=== PATIENT | male | born 1975 | race Caucasian/White ===

== ENCOUNTER 2024-11-09 10:40 | Outpatient (AMB) | payer OTHER, SELFPAY ==
--- NOTE | 2024-11-09 10:44 | A.OFFVIS_ITS ---
Vital Signs 3 11/09/24 10:52 Height 5 ft 8 in Weight 166 lb BMI 25.2 BP 166/106 H Blood Pressure Location Lt brachial Position Sitting Pulse 66 Intake Visit Reasons: epidermal cyst Intake Note: Patient is seen in office for evaluation of a two large cyst of the scalp. Pt c/o: has two cyst front one has been there many yrs, another behind for 2 yrs, painful when hitting it, increase in size, denies discharge, redness Coke Worker Required: No Accompanied by: Self / Same As Patient Allergies No Known Allergies Allergy (Verified 11/09/24 10:51) Medication List - Last Reconciled 11/09/24 by Jonah Marie MD No Known Home Meds HPI Comments Details: 48-year-old male patient presenting with several lumps on his scalp which has been present for several years but have gradually increased in size. He denies any pain, redness or discharge from the site. Denies any fever or chills. He is requesting excision of the 3 lesions. [facility] Social History Alcohol intake: never Patient Tobacco Use Status: Never used Tobacco Review of Systems Const All systems reviewed & are unremarkable except as noted in HPI and below Physical Exam Vital Signs: Last Vital Signs Pulse 66 11/09/24 10:52 BP 166/106 H 11/09/24 10:52 BMI result Body Mass Index 25.2 Const General: cooperative and no acute distress Nutritional Appearance: well nourished Orientation/consciousness: patient oriented x3 Limitations: no limitations HEENT Other: Pilar cyst x3 including a 4 cm lesion in the frontal scalp, 3 cm lesion in the parietal scalp to the right of midline, and a 1 cm lesion in the posterior parietal region, all nontender to palpation, the larger lesions with some fluctuance suggestive of underlying fluid. Head: Yes normocephalic and Yes atraumatic Head images: 2 1. 4 cm Pilar cyst 2. 3 cm Pilar cyst 3. 1 cm Pilar cyst Ears: hearing grossly normal bilaterally Resp Effort & Inspection: normal respiratory effort, no audible wheezes, no cough and no respiratory distress Cardio Jugular venous distension: no JVD GI Inspection: Yes normal to inspection Skin Other: Warm, dry, no rash Neuro General: patient oriented x3 Extrem General: Yes no clubbing, cyanosis or edema Assessment & Plan Assessment & Plan (1) Pilar cyst of scalp: Code(s): L72.11 - Pilar cyst Category: Medical Plan 48-year-old male patient with 3 Pilar cyst of the scalp 2 of which are quite large. I recommended excision of the 3 lesions under local anesthesia as a minor surgery. After review of the procedure, risks, and alternatives, he consents to the surgery. This will be scheduled as a minor surgery at his earliest convenience. Coding Level of Care Code New Pt Level 4 (73694) Diagnoses Pilar cyst of scalp L72.11
[2024-11-09 10:52] VITALS: BP 166/106; PULSE 66; BMI 25.2
--- OUTSIDE RECORDS SUMMARY | 2024-11-09 11:35 | XMS_ITS | Clinical Summary ---
Author Organization [facility] Address [address] [place] [address] Care Team Providers Care Manager Floor Name Role Phone Unknown Pcp, Non Rmg Primary Care Provider Unava ilable Immunizations Immunization Administration Dates Next Due Td (adult), adsorbed 06/14/1993 Social History Tobacco Use Types Packs/Day Years Used Date Smoking Tobacco: Never Assessed Sex and Gender Information Value Date Recorded Sex Assigned at Not on file Legal Sex Male 4:24 AM EDT Gender Identity Not on file Sexual Orientation Not on file Plan of Treatment Health Maintenance Due Date Last Done Comments Hepatitis C Screening 1975 DTaP/Tdap/Td (2 - Tdap) 06/15/1993 06/14/1993 Hep B (1 of 3 - 19+ 3-dose series) 12/19/1994 COVID-19 Vaccine ( - 2023-2 5 season) 2023 Influenza (#1) 2024 Zoster (Shingrix) (1 of 2) 12/19/2025 HPV Vaccine Aged Out No longer eligi ble based on patient's age to complete this topic Hep A Aged Out No longer eligi ble based on patient's age to complete this topic Hib Aged Out No longer eligi ble based on patient's age to complete this topic Meningococcal ACWY Aged Out No longer eligible based on patient's age to complete this topic Pneumococcal Aged Out No longer eligi ble based on patient's age to complete this topic Care Teams Manager Floor Relationship Specialty Start Date End Date Unknown Pcp, Non Teddyg PCP - General 10/21/14
== END 2024-11-09 11:11 | disposition home or self-care (01) ==
LOC: HO.HGS 10:41
PROVIDERS: PCP Nurse Practitioner Family; Visit Provider Surgery
DX: L72.11 Pilar cyst (principal)
CPT/HCPCS: 99204

== ENCOUNTER → 2024-11-09 10:40 | Outpatient (BNVA) | payer OTHER, SELFPAY | PROVIDERS: PCP Nurse Practitioner Family; Visit Provider Surgery | DX: L72.11 Pilar cyst (principal) | CPT/HCPCS: 99202 ==

== ENCOUNTER 2024-12-01 13:30 | Outpatient (REF) | payer OTHER, SELFPAY ==
[2024-12-01 13:44] VITALS: BP 145/94; PULSE 71; RESP 18; TEMP 36.1; O2SAT 99; BMI 24.0
--- OUTSIDE RECORDS SUMMARY | 2024-12-01 14:10 | XMS_ITS | Clinical Summary ---
Author Organization [facility] Address [address] [place] [address] Care Team Providers Care Rn Paralegal Name Role Phone Unknown Pcp, Non Rmg [...] (Shingrix) (1 of 2) 12/19/2025 HPV Vaccine (No Doses Required) Completed Hep A Aged Out No longer eligi ble based on patient's age to complete this topic Hib Aged Out No longer eligi ble based on patient's age to complete this topic Meningococcal ACWY Aged Out No longer eligible based on patient's age to complete this topic Pneumococcal Aged Out No longer eligi ble based on patient's age to complete this topic Care Teams Rn Paralegal Relationship Specialty Start Date End Date Unknown Pcp, Non Rmg PCP - General 10/21/14
--- NOTE | 2024-12-01 14:58 | P.OP_ITS ---
Operative Note Operative Note Date of Service: 12/01/24 Narrative: Preoperative diagnosis: Pilar cyst of scalp x3 Postoperative diagnosis: Same Procedure: Excision of Pilar cyst x3 Surgeon: Jonah Marie MD Social Worker Health Services: Makenna Luna MS-3 Anesthesia: Local lidocaine 1% with epinephrine Indications for procedure: 40-year-old male patient presenting with 3 large Pilar cyst of the scalp in the midline, the largest measuring 3 cm, the more anterior measuring 2 cm in the more posterior measuring 1 cm Operative findings: Pilar cyst x3 Specimen: Pilar cyst x3 Estimated blood loss: 2 mL Complications: None Procedure details: Patient was brought to the minor surgery suite and placed in a supine sitting position. The site of surgery was confirmed with the patient. After assuring informed consent the skin was prepped with Betadine and draped in a sterile fashion. Beginning with the largest cyst, local was infiltrated over the skin and a incision made directly over the cyst from anterior to posterior. Incision was carried down up to the cyst wall. A small amount of cyst fluid was evacuated. The cyst wall was then dissected free from the surrounding subcutaneous tissue. The lesion was completely removed and sent to pathology for further examination. Skin was then closed using interrupted 3-0 Prolene sutures. The neck is lesion which measured approximately 2 cm in diameter was next anesthetized using the lidocaine with epinephrine. An incision was then made directly over the cyst from anterior to posterior. Incision was carried down into the subcutaneous tissue and around the cyst wall. Sharp dissection and blunt dissection was then used to dissect the cyst from the surrounding subcutaneous tissue. This was then passed off the table and sent to pathology for further examination. Skin was then closed using interrupted 3-0 Prolene s utures. Finally the more posterior 1 cm lesion was then incised directly over the cyst. The cyst was then bluntly dissected from the surrounding subcutaneous tissue. The cyst was removed and sent to pathology for further examination. Skin was also closed using interrupted 3-0 Prolene sutures. All skin incisions were then dressed with bacitracin ointment. The patient tolerated the procedure well. He was discharged to home in stable condition.
== END 2024-12-01 13:31 | disposition home or self-care (01) ==
LOC: HO.MS 13:30
PROVIDERS: PCP Nurse Practitioner Family; Visit Provider Surgery
PROC: (CPT 11423; principal; 2024-12-01 14:00)
DX: L72.11 Pilar cyst (principal)
CPT/HCPCS: 11423; 11422; 11421; 88304; J2004

== ENCOUNTER → 2024-12-01 13:30 | Outpatient (BNV) | payer OTHER, SELFPAY | PROVIDERS: PCP Nurse Practitioner Family; Visit Provider Surgery | DX: L72.11 Pilar cyst (principal) | CPT/HCPCS: 11401; 11402; 11403 ==

== ENCOUNTER 2024-12-15 11:52 | Outpatient (AMB) | payer OTHER, SELFPAY ==
--- NOTE | 2024-12-15 12:04 | A.OFFVIS_ITS ---
Vital Signs 12/15/24 12:05 Height 5 ft 8 in Weight 163 lb BMI 24.8 BP 162/98 H Blood Pressure Location Rt brachial Position Sitting Pulse 65 Intake Visit Reasons: s/p excision of 3 pilar cystof scalp Intake Note: Patient here s/p scalp excision X3. Reports incisions healing well. Patient c/o: denies pain, oozing, itch. Sutures removed without incident. Field Coordinator Required: No Accompanied by: Self / Same As Patient Allergies No Known Allergies Allergy (Verified 12/15/24 12:07) HPI Comments Details: 40-year-old male patient status post excision of Pilar cyst x3. He tolerated the procedure well and returns today for wound check. Pathology confirmed a Pilar cyst. COUNTS INCLUDE 234 BEDS AT THE [facility] Surgical History (Updated 12/10/24 @ 14:06 by BRYAN Sullivan) History of removal of cyst (12/01/24) Social History Alcohol intake: never Patient Tobacco Use Status: Never used Tobacco Physical Exam Vital Signs: Last Vital Signs Pulse 65 12/15/24 12:05 BP 162/98 H 12/15/24 12:05 BMI result Body Mass Index 24.8 HEENT Other: Three incisions in the frontal and parietal scalp are clean and intact. Sutures removed and the wounds found to be well healed. Assessment & Plan Assessment & Plan (1) Pilar cyst of scalp: Code(s): L72.11 - Pilar cyst Category: Medical Plan Patient returns 1 week following excision of 3 Pilar cysts in minor surgery. Pathology confirmed a Pilar cyst. Sutures removed and wounds found to be well healed. He should follow up as needed. Coding Level of Care Code Global (36570) Diagnoses Pilar cyst of scalp L72.11
[2024-12-15 12:05] VITALS: BP 162/98; PULSE 65; BMI 24.8
--- OUTSIDE RECORDS SUMMARY | 2024-12-15 13:22 | XMS_ITS | Clinical Summary ---
Author Organization [facility] Address [address] [place] [address] Care Team Providers Care Steward/Stewardess Room Name Role Phone Unknown Pcp, Non Rmg [...] age to complete this topic Care Teams Steward/Stewardess Room Relationship Specialty Start Date End Date Unknown Pcp, Non Rmg PCP - General 10/21/14
== END 2024-12-15 12:07 | disposition home or self-care (01) ==
LOC: HO.HGS 11:52
PROVIDERS: PCP Nurse Practitioner Family; Visit Provider Surgery
DX: L72.11 Pilar cyst (principal)
CPT/HCPCS: 99024

== ENCOUNTER → 2024-12-15 11:52 | Outpatient (BNVA) | payer OTHER, SELFPAY | PROVIDERS: PCP Nurse Practitioner Family; Visit Provider Surgery | DX: Z98.890 Other specified postprocedural states (principal); L72.11 Pilar cyst | CPT/HCPCS: 99212 ==